=== PATIENT | female | born 1955 | race African-American/Black ===

== ENCOUNTER 2017-07-14 19:43 | Emergency (ER) | payer MEDICAID ==
[~2017-07-14] VITALS: Ht 162.6 cm; Wt 68.0 kg
[~2017-07-14 19:43] MED LIST: AMLO10TA80 PO; ASPI-1158 PO; ATOR10TA69 PO; BACL-141 PO; BUPR100T13 PO; COMBIVENT INH; DIPH25CA83 PO; FLUT1DIS3 IH; LAMO25TA4 PO; LISI-604 PO; NAPR-1164 PO; OMEP20CA10 PO; PRED5TAB48 PO; SUCR1TAB PO; THEOPHYLLINE PO
[2017-07-14 20:13] VITALS: BP 109/69
== END 2017-07-14 21:00 | disposition left against medical advice (07) ==
LOC: ER 19:47
DX: R06.02 Shortness of breath (principal); Z53.21 Procedure and treatment not carried out due to patient leaving prior to being seen by health care provider

== ENCOUNTER 2018-01-05 10:28 | Inpatient (IN) | payer MEDICAID ==
[~2018-01-05] VITALS: Ht 167.6 cm; Wt 79.6 kg
[~2018-01-05 10:28] MED LIST changes: +ALBU6.7H INH; -ATOR10TA69 PO; -BACL-141 PO; -BUPR100T13 PO; -DIPH25CA83 PO; -LAMO25TA4 PO; -LISI-604 PO; +MONT10TA21 PO; -NAPR-1164 PO; -OMEP20CA10 PO; +P50 PO; -PRED5TAB48 PO; +QUET300T2 PO; -THEOPHYLLINE PO; +TRAZ-212 PO
[2018-01-05] MEDS ORDERED: IPRATROPIUM BROMIDE (0.02%) 0.5MG/2.5ML NEB HHN STA (10:48)
[2018-01-05] MEDS ORDERED: METHYLPREDNISOLONE SOD SUCC 125 MG/2 ML VIAL IV STA (10:48)
[2018-01-05] MEDS ORDERED: ALBUTEROL (0.083%) 2.5MG/3ML NEB HHN SCH (11:00)
[2018-01-05] MEDS ORDERED: MAGNESIUM 2 G PREMIX 50 ML IV ONE (11:00)
[2018-01-05 11:28] LABS: BG BILEVEL POS AIRWAY PRESSURE 15/5; BG CARBOXYHEMOGLOBIN 0.4 % (0.5-1.5); BG DEOXYHEMOGLOBIN 0.6 % (0.0-5.0); BG FRACTION INSPIRED OXYGEN 40; BG HCO3 ACT 39.5 mmol/L (22.0-26.0); BG METHEMOGLOBIN 0.2 % (0.0-1.5); BG OXYGEN SATURATION 99.4 % (92.0-98.5); BG OXYHEMOGLOBIN 98.8 % (94.0-97.0); BG PCO2 67.8 mmHg (35.0-45.0); BG PH 7.383 (7.350-7.450); BG PO2 199.8 mmHg (75.0-100.0); BG SAMPLE SITE RIGHT RADIAL; BG TOTAL HEMOGLOBIN 11.3 g/dL (12.0-18.0); BG VENT MODE MASK - BIPAP; BG VENT RATE 14 set
[2018-01-05 13:08] LABS: HEMATOCRIT. 33.9 % (36.0-48.0); MEAN CORPUSCULAR HEMOGLOBIN 27.4 pg (28.0-32.0); MEAN CORPUSCULAR VOLUME 84.7 fL (81.0-99.0); PLATELET 523 x1000/uL (130-400); RED BLOOD CELL COUNT 4.01 mill/uL (4.2-5.4); RED CELL DISTRIBUTION WIDTH 16.5 % (11.6-14.6)
[2018-01-05 13:14] LABS: CHLORIDE 99 mEq/L (98-107)
[2018-01-05 13:38] LABS: PLATELET ESTIMATE INCREASED
[2018-01-05] MEDS ORDERED: IPRATROPIUM/ALBUTEROL 0.5-3(2.5)MG/3ML NEB HHN PRN (14:30)
[2018-01-05] MEDS ORDERED: MORPHINE SULFATE 4 MG/ML CPJ (NOT FOR IM USE) IV PRN (17:50)
[2018-01-05 20:00] VITALS: BP 153/95
[2018-01-05] MEDS: METHYLPREDNISOLONE SOD SUCC 40 MG/ML VIAL IV SCH (20:20)
[2018-01-05] MEDS: IPRATROPIUM/ALBUTEROL 0.5-3(2.5)MG/3ML NEB HHN SCH (20:58)
[2018-01-05] MEDS ORDERED: GUAIFENESIN 600MG ER TABLET PO SCH (21:00)
[2018-01-05] MEDS ORDERED: LEVOFLOXACIN 500MG PREMIX 100 ML IV SCH (21:30)
[2018-01-06] VITALS (10 sets, daily range): BP systolic 133–157; BP diastolic 80–112
[2018-01-06] MEDS: IPRATROPIUM/ALBUTEROL 0.5-3(2.5)MG/3ML NEB HHN SCH ×6 (00:28→18:45)
[2018-01-06] MEDS: DIPHENHYDRAMINE 50MG/ML VIAL IV PRN ×2 (01:38→22:05)
[2018-01-06] MEDS: CLONIDINE 0.1MG TABLET PO PRN (04:23)
[2018-01-06] MEDS: METHYLPREDNISOLONE SOD SUCC 40 MG/ML VIAL IV SCH ×3 (05:38→20:17)
[2018-01-06 06:13] LABS: HEMOGLOBIN. 10.1 g/dL (12.0-16.0); MEAN CORPUSCULAR HEMOGLOBIN 28.2 pg (28.0-32.0); MEAN CORPUSCULAR VOLUME 83.9 fL (81.0-99.0); MEAN PLATELET VOLUME 8.2 fl (7.4-10.4); PLATELET 499 x1000/uL (130-400); RED BLOOD CELL COUNT 3.58 mill/uL (4.2-5.4); RED CELL DISTRIBUTION WIDTH 16.3 % (11.6-14.6)
[2018-01-06 06:37] LABS: CHLORIDE 95 mEq/L (98-107)
[2018-01-06] MEDS: BUDESONIDE 0.5MG/2ML NEB HHN SCH ×2 (07:41→20:37)
[2018-01-06] MEDS: LEVOFLOXACIN 500MG PREMIX 100 ML IV SCH (08:38)
[2018-01-06] MEDS: GUAIFENESIN 600MG ER TABLET PO SCH ×2 (08:38→21:52)
[2018-01-06] MEDS: MORPHINE SULFATE 4 MG/ML CPJ (NOT FOR IM USE) IV PRN ×2 (10:36→20:17)
[2018-01-06] MEDS ORDERED: CLONIDINE 0.1MG TABLET PO PRN (10:45)
[2018-01-06 14:42] LABS: BG BILEVEL POS AIRWAY PRESSURE 15/5; BG CARBOXYHEMOGLOBIN 0.5 % (0.5-1.5); BG DEOXYHEMOGLOBIN 3.9 % (0.0-5.0); BG HCO3 ACT 40.2 mmol/L (22.0-26.0); BG METHEMOGLOBIN 0.3 % (0.0-1.5); BG OXYGEN SATURATION 96.1 % (92.0-98.5); BG OXYHEMOGLOBIN 95.3 % (94.0-97.0); BG PCO2 71.9 mmHg (35.0-45.0); BG PH 7.365 (7.350-7.450); BG PO2 87.4 mmHg (75.0-100.0); BG SAMPLE SITE RIGHT RADIAL; BG TOTAL HEMOGLOBIN 12.3 g/dL (12.0-18.0); BG VENT MODE MASK - BIPAP; BG VENT RATE 14 set
[2018-01-06] MEDS ORDERED: LIDOCAINE HCL/PF 1% 2ML VIAL ONE (15:11)
[2018-01-06] MEDS: MONTELUKAST SODIUM 10MG TABLET PO SCH ×2 (16:06→16:07)
[2018-01-06 16:11] LABS: PLATELET ESTIMATE INCREAS
[2018-01-06] MEDS: QUETIAPINE FUMARATE 100MG TABLET PO SCH (21:52)
[2018-01-07] VITALS (11 sets, daily range): BP systolic 103–147; BP diastolic 45–101
[2018-01-07] MEDS: IPRATROPIUM/ALBUTEROL 0.5-3(2.5)MG/3ML NEB HHN SCH ×6 (00:53→19:42)
[2018-01-07] MEDS: METHYLPREDNISOLONE SOD SUCC 40 MG/ML VIAL IV SCH ×3 (04:27→19:27)
[2018-01-07 06:35] LABS: HEMATOCRIT. 32.4 % (36.0-48.0); HEMOGLOBIN. 10.5 g/dL (12.0-16.0); MEAN CORPUSCULAR HEMOGLOBIN 27.6 pg (28.0-32.0); MEAN PLATELET VOLUME 8.6 fl (7.4-10.4); PLATELET 549 x1000/uL (130-400); RED BLOOD CELL COUNT 3.81 mill/uL (4.2-5.4); RED CELL DISTRIBUTION WIDTH 16.4 % (11.6-14.6)
[2018-01-07] MEDS: LEVOFLOXACIN 500MG PREMIX 100 ML IV SCH (06:39)
[2018-01-07 06:42] LABS: CHLORIDE 95 mEq/L (98-107)
[2018-01-07] MEDS: BUDESONIDE 0.5MG/2ML NEB HHN SCH ×2 (07:26→19:41)
[2018-01-07] MEDS: GUAIFENESIN 600MG ER TABLET PO SCH ×2 (08:21→20:24)
[2018-01-07 10:10] LABS: PLATELET ESTIMATE INCREASED
[2018-01-07 13:14] LABS: *AMPHETAMINES SCREEN URINE NEGATIVE (NEGATIVE)
[2018-01-07 13:15] LABS: *BARBITURATES SCREEN URINE NEGATIVE (NEGATIVE); *BENZODIAZEPINES SCREEN URINE PRESUMTIVE POSITIVE (NEGATIVE); *COCAINE SCREEN URINE NEGATIVE (NEGATIVE); METHADONE URINE SCREEN NEGATIVE (NEGATIVE)
[2018-01-07 13:16] LABS: CANNABINOID URINE SCREEN NEGATIVE (NEGATIVE); OPIATES URINE SCREEN PRESUMTIVE POSITIVE (NEGATIVE); PHENCYCLIDINE URINE SCREEN NEGATIVE (NEGATIVE)
[2018-01-07] MEDS: MORPHINE SULFATE 4 MG/ML CPJ (NOT FOR IM USE) IV PRN ×2 (16:28→21:04)
[2018-01-07] MEDS: MONTELUKAST SODIUM 10MG TABLET PO SCH (16:29)
[2018-01-07] MEDS: DIPHENHYDRAMINE 50MG/ML VIAL IV PRN (19:27)
[2018-01-07] MEDS: QUETIAPINE FUMARATE 100MG TABLET PO SCH (20:24)
[2018-01-07] MEDS: CLONIDINE 0.1MG TABLET PO PRN (21:12)
[2018-01-08] VITALS (12 sets, daily range): BP systolic 128–170; BP diastolic 60–120
[2018-01-08] MEDS: IPRATROPIUM/ALBUTEROL 0.5-3(2.5)MG/3ML NEB HHN SCH ×4 (00:51→20:57)
[2018-01-08] MEDS: METHYLPREDNISOLONE SOD SUCC 40 MG/ML VIAL IV SCH ×3 (04:49→20:45)
[2018-01-08] MEDS: MORPHINE SULFATE 4 MG/ML CPJ (NOT FOR IM USE) IV PRN ×4 (06:57→20:47)
[2018-01-08] MEDS: CLONIDINE 0.1MG TABLET PO PRN ×3 (07:17→22:07)
[2018-01-08] MEDS: GUAIFENESIN 600MG ER TABLET PO SCH ×2 (08:24→20:46)
[2018-01-08] MEDS: BUDESONIDE 0.5MG/2ML NEB HHN SCH (08:28)
[2018-01-08] MEDS: LOSARTAN POTASSIUM 25 MG TABLET PO SCH ×2 (10:15→20:46)
[2018-01-08] MEDS ORDERED: BUDESONIDE 0.5MG/2ML NEB HHN SCH (10:30)
[2018-01-08 12:55] LABS: PARTIAL THROMBOPLASTIN TIME 22.6 sec (23.4-31.0)
[2018-01-08] MEDS: ACETYLCYSTEINE 100MG/ML 10% VIAL 4ML INH SCH (15:21)
[2018-01-08] MEDS: IPRATROPIUM BROMIDE (0.02%) 0.5MG/2.5ML NEB HHN PRN ×2 (15:22→18:33)
[2018-01-08] MEDS: MONTELUKAST SODIUM 10MG TABLET PO SCH (16:31)
[2018-01-08] MEDS: QUETIAPINE FUMARATE 100MG TABLET PO SCH (20:46)
[2018-01-08] MEDS: DIPHENHYDRAMINE 50MG/ML VIAL IV PRN (21:39)
[2018-01-09] VITALS (13 sets, daily range): BP systolic 107–162; BP diastolic 78–113
[2018-01-09] MEDS: ACETYLCYSTEINE 100MG/ML 10% VIAL 4ML INH SCH ×3 (00:09→15:33)
[2018-01-09] MEDS: IPRATROPIUM/ALBUTEROL 0.5-3(2.5)MG/3ML NEB HHN SCH ×6 (00:10→20:51)
[2018-01-09] MEDS: MORPHINE SULFATE 4 MG/ML CPJ (NOT FOR IM USE) IV PRN ×5 (03:11→20:05)
[2018-01-09] MEDS: METHYLPREDNISOLONE SOD SUCC 40 MG/ML VIAL IV SCH ×3 (04:41→20:05)
[2018-01-09 07:23] LABS: HEMATOCRIT. 34.2 % (36.0-48.0); HEMOGLOBIN. 11.2 g/dL (12.0-16.0); MEAN CORPUSCULAR HEMOGLOBIN 27.6 pg (28.0-32.0); MEAN CORPUSCULAR VOLUME 84.1 fL (81.0-99.0); MEAN PLATELET VOLUME 9.4 fl (7.4-10.4); PLATELET 472 x1000/uL (130-400); RED BLOOD CELL COUNT 4.07 mill/uL (4.2-5.4); RED CELL DISTRIBUTION WIDTH 16.1 % (11.6-14.6)
[2018-01-09 08:07] LABS: CHLORIDE 92 mEq/L (98-107)
[2018-01-09 08:13] LABS: PHOSPHORUS 4.2 mg/dL (2.5-4.9)
[2018-01-09] MEDS: LOSARTAN POTASSIUM 25 MG TABLET PO SCH ×2 (09:10→20:40)
[2018-01-09] MEDS: GUAIFENESIN 600MG ER TABLET PO SCH ×2 (09:11→20:40)
[2018-01-09 10:24] LABS: PLATELET ESTIMATE INCREASED
[2018-01-09] MEDS: CLONIDINE 0.1MG TABLET PO PRN ×2 (11:00→19:09)
[2018-01-09] MEDS: MONTELUKAST SODIUM 10MG TABLET PO SCH (16:26)
[2018-01-09] MEDS: DIPHENHYDRAMINE 50MG/ML VIAL IV PRN (19:02)
[2018-01-09] MEDS: QUETIAPINE FUMARATE 100MG TABLET PO SCH (20:40)
[2018-01-10] VITALS (12 sets, daily range): BP systolic 2–161; BP diastolic 86–117
[2018-01-10] MEDS: IPRATROPIUM/ALBUTEROL 0.5-3(2.5)MG/3ML NEB HHN SCH ×5 (00:42→20:56)
[2018-01-10] MEDS: ACETYLCYSTEINE 100MG/ML 10% VIAL 4ML INH SCH ×2 (00:43→12:02)
[2018-01-10] MEDS: MORPHINE SULFATE 4 MG/ML CPJ (NOT FOR IM USE) IV PRN ×4 (03:25→22:15)
[2018-01-10] MEDS: METHYLPREDNISOLONE SOD SUCC 40 MG/ML VIAL IV SCH ×3 (04:05→20:38)
[2018-01-10 07:46] LABS: HEMATOCRIT. 35.6 % (36.0-48.0); HEMOGLOBIN. 11.6 g/dL (12.0-16.0); MEAN CORPUSCULAR HEMOGLOBIN 27.7 pg (28.0-32.0); MEAN CORPUSCULAR VOLUME 84.8 fL (81.0-99.0); MEAN PLATELET VOLUME 8.5 fl (7.4-10.4); PLATELET 605 x1000/uL (130-400); RED CELL DISTRIBUTION WIDTH 16.1 % (11.6-14.6)
[2018-01-10 08:13] LABS: CHLORIDE 92 mEq/L (98-107)
[2018-01-10 08:19] LABS: PHOSPHORUS 3.6 mg/dL (2.5-4.9)
[2018-01-10] MEDS: LOSARTAN POTASSIUM 25 MG TABLET PO SCH ×2 (08:20→20:38)
[2018-01-10] MEDS: GUAIFENESIN 600MG ER TABLET PO SCH ×2 (08:20→20:38)
[2018-01-10] MEDS: DIPHENHYDRAMINE 50MG/ML VIAL IV PRN (10:36)
[2018-01-10 14:32] LABS: BG BASE EXCESS 17.5 mmol/L (-2.0-2.0); BG CARBOXYHEMOGLOBIN 0.4 % (0.5-1.5); BG DEOXYHEMOGLOBIN 5.9 % (0.0-5.0); BG FRACTION INSPIRED OXYGEN 36; BG METHEMOGLOBIN 0.1 % (0.0-1.5); BG OXYGEN SATURATION 94.1 % (92.0-98.5); BG OXYHEMOGLOBIN 93.6 % (94.0-97.0); BG PCO2 85.5 mmHg (35.0-45.0); BG PH 7.358 (7.350-7.450); BG PO2 79.9 mmHg (75.0-100.0); BG SAMPLE SITE RIGHT BRACHIAL; BG TOTAL HEMOGLOBIN 12.4 g/dL (12.0-18.0); BG VENT MODE NASAL CANNULA
[2018-01-10 14:53] LABS: PLATELET ESTIMATE INCREASED
[2018-01-10] MEDS: MONTELUKAST SODIUM 10MG TABLET PO SCH (16:24)
[2018-01-10] MEDS: QUETIAPINE FUMARATE 100MG TABLET PO SCH (20:38)
[2018-01-11] VITALS (8 sets, daily range): BP systolic 136–148; BP diastolic 62–114
[2018-01-11] MEDS: IPRATROPIUM/ALBUTEROL 0.5-3(2.5)MG/3ML NEB HHN SCH ×6 (00:47→20:37)
[2018-01-11] MEDS: ACETYLCYSTEINE 100MG/ML 10% VIAL 4ML INH SCH ×3 (00:47→16:28)
[2018-01-11] MEDS: DIPHENHYDRAMINE 50MG/ML VIAL IV PRN ×2 (03:24→20:42)
[2018-01-11] MEDS: METHYLPREDNISOLONE SOD SUCC 40 MG/ML VIAL IV SCH ×3 (03:24→20:41)
[2018-01-11] MEDS: MORPHINE SULFATE 4 MG/ML CPJ (NOT FOR IM USE) IV PRN ×3 (06:53→17:25)
[2018-01-11] MEDS: LOSARTAN POTASSIUM 25 MG TABLET PO SCH ×2 (08:58→20:43)
[2018-01-11] MEDS: GUAIFENESIN 600MG ER TABLET PO SCH ×2 (08:58→20:43)
[2018-01-11] MEDS ORDERED: LIDOCAINE HCL 1% 20ML VIAL (Pyxis) INJ ONE (11:11)
[2018-01-11] MEDS ORDERED: SODIUM BICARBONATE 4% (2.4MEQ) 5ML VIAL IV ONE (11:12)
[2018-01-11] MEDS: MONTELUKAST SODIUM 10MG TABLET PO SCH (17:25)
[2018-01-11] MEDS: QUETIAPINE FUMARATE 100MG TABLET PO SCH (20:45)
[2018-01-12] VITALS (9 sets, daily range): BP systolic 110–156; BP diastolic 60–115
[2018-01-12] MEDS: ACETYLCYSTEINE 100MG/ML 10% VIAL 4ML INH SCH ×3 (00:10→16:07)
[2018-01-12] MEDS: IPRATROPIUM/ALBUTEROL 0.5-3(2.5)MG/3ML NEB HHN SCH ×6 (00:10→21:21)
[2018-01-12] MEDS: MORPHINE SULFATE 4 MG/ML CPJ (NOT FOR IM USE) IV PRN ×4 (05:18→21:34)
[2018-01-12] MEDS: METHYLPREDNISOLONE SOD SUCC 40 MG/ML VIAL IV SCH ×3 (05:18→21:33)
[2018-01-12] MEDS: LOSARTAN POTASSIUM 25 MG TABLET PO SCH ×2 (08:29→21:33)
[2018-01-12] MEDS: GUAIFENESIN 600MG ER TABLET PO SCH ×2 (08:29→21:33)
[2018-01-12] MEDS ORDERED: FUROSEMIDE 40MG/4ML VIAL IVP NR (15:00)
[2018-01-12] MEDS ORDERED: MONT10TA21 PO (16:24)
[2018-01-12] MEDS ORDERED: LOSA25TA3 PO (16:24)
[2018-01-12] MEDS: MONTELUKAST SODIUM 10MG TABLET PO SCH (16:38)
[2018-01-12] MEDS: QUETIAPINE FUMARATE 100MG TABLET PO SCH (21:33)
[2018-01-12] MEDS: DIPHENHYDRAMINE 50MG/ML VIAL IV PRN (21:33)
[2018-01-13] VITALS (8 sets, daily range): BP systolic 118–165; BP diastolic 52–104
[2018-01-13] MEDS: IPRATROPIUM/ALBUTEROL 0.5-3(2.5)MG/3ML NEB HHN SCH ×3 (01:26→08:36)
[2018-01-13] MEDS: ACETYLCYSTEINE 100MG/ML 10% VIAL 4ML INH SCH ×2 (01:26→08:36)
[2018-01-13] MEDS: DILTIAZEM HCL 30MG TABLET PO SCH ×2 (02:19→05:51)
[2018-01-13] MEDS: DIPHENHYDRAMINE 50MG/ML VIAL IV PRN (03:23)
[2018-01-13] MEDS: METHYLPREDNISOLONE SOD SUCC 40 MG/ML VIAL IV SCH (03:23)
[2018-01-13] MEDS: MORPHINE SULFATE 4 MG/ML CPJ (NOT FOR IM USE) IV PRN ×2 (06:06→11:01)
[2018-01-13] MEDS: GUAIFENESIN 600MG ER TABLET PO SCH (08:12)
[2018-01-13] MEDS: LOSARTAN POTASSIUM 25 MG TABLET PO SCH (08:12)
[2018-01-13] MEDS ORDERED: DILT30TA38 PO (12:07)
== END 2018-01-13 12:20 | disposition home or self-care (01) | DRG 194 ==
LOC: ER 10:41 → 3WST 13:42 → EDBEDREQ 13:53 → ENRESERV 18:33
PROVIDERS: ADMIT Internal Medicine; ATTEND Internal Medicine
PROC: 5A09357 Assistance with Respiratory Ventilation, Less than 24 Consecutive Hours, Continuous Positive Airway Pressure (ICD-10-PCS; principal; 2018-01-06)
PROC: 5A09357 Assistance with Respiratory Ventilation, Less than 24 Consecutive Hours, Continuous Positive Airway Pressure (ICD-10-PCS; 2018-01-07)
PROC: 5A09357 Assistance with Respiratory Ventilation, Less than 24 Consecutive Hours, Continuous Positive Airway Pressure (ICD-10-PCS; 2018-01-08)
PROC: 5A09357 Assistance with Respiratory Ventilation, Less than 24 Consecutive Hours, Continuous Positive Airway Pressure (ICD-10-PCS; 2018-01-09)
PROC: 5A09457 Assistance with Respiratory Ventilation, 24-96 Consecutive Hours, Continuous Positive Airway Pressure (ICD-10-PCS; 2018-01-10)
PROC: 0W993ZZ Drainage of Right Pleural Cavity, Percutaneous Approach (ICD-10-PCS; 2018-01-11)
PROC: 5A09357 Assistance with Respiratory Ventilation, Less than 24 Consecutive Hours, Continuous Positive Airway Pressure (ICD-10-PCS; 2018-01-12)
DX: J90 Pleural effusion, not elsewhere classified (principal); I50.9 Heart failure, unspecified; I11.0 Hypertensive heart disease with heart failure; J96.02 Acute respiratory failure with hypercapnia; E43 Unspecified severe protein-calorie malnutrition; E87.2 Acidosis; R65.10 Systemic inflammatory response syndrome (SIRS) of non-infectious origin without acute organ dysfunction; F20.9 Schizophrenia, unspecified; Z99.81 Dependence on supplemental oxygen; C50.912 Malignant neoplasm of unspecified site of left female breast; D64.9 Anemia, unspecified; J44.1 Chronic obstructive pulmonary disease with (acute) exacerbation; D72.829 Elevated white blood cell count, unspecified; K21.9 Gastro-esophageal reflux disease without esophagitis; M19.90 Unspecified osteoarthritis, unspecified site; E78.5 Hyperlipidemia, unspecified; F31.9 Bipolar disorder, unspecified; F41.9 Anxiety disorder, unspecified; J93.9 Pneumothorax, unspecified; T38.0X5A Adverse effect of glucocorticoids and synthetic analogues, initial encounter; Z81.8 Family history of other mental and behavioral disorders; Z79.899 Other long term (current) drug therapy; Z68.28 Body mass index [BMI] 28.0-28.9, adult; Z82.49 Family history of ischemic heart disease and other diseases of the circulatory system; Z82.5 Family history of asthma and other chronic lower respiratory diseases; Z90.13 Acquired absence of bilateral breasts and nipples; Z92.21 Personal history of antineoplastic chemotherapy; Z91.018 Allergy to other foods; Z91.041 Radiographic dye allergy status; Z91.013 Allergy to seafood; Z88.8 Allergy status to other drugs, medicaments and biological substances; Z91.048 Other nonmedicinal substance allergy status
CPT/HCPCS: 32555; 36415; 36600; 71045; 80048; 80053; 80305; 82375; 82805; 83735; 83880; 84100; 84145; 84484; 85025; 85610; 85730; 87040; 93005; 93971; 94640; 94660; 96365; 96366; 96367; 96375; 99291; J1200; J1940; J1956; J2270; J2920; J2930; J3475; J3490; J7050; J7608; J7611; J7620; J7626